=== PATIENT | male | born 1965 | race Caucasian/White ===

== ENCOUNTER 2019-03-16 17:14 | Inpatient (IN) ==
[2019-03-16] MEDS ORDERED: CARDIZEM INJ 50 MG VIAL IVP ONE (17:40)
[2019-03-16] MEDS ORDERED: CARDIZEM INJ 50 MG VIAL ONE (17:42)
[2019-03-16] MEDS ORDERED: CARDIZEM INJ 125 MG VIAL ONE (17:58)
[2019-03-16] MEDS ORDERED: NS 100 ML IV 100 ML IV ONE (17:58)
[2019-03-16] MEDS ORDERED: NS 1000 ML 1,000 ML ONE (18:00)
[2019-03-16 18:01] LABS: BASOPHILS # (AUTO) 0.2 X10^3/uL (0.0-0.1); BASOPHILS % (AUTO) 1.6 % (0.2-1.0); EOSINOPHILS # (AUTO) 0.4 x10^3/uL (0.0-0.2); HEMATOCRIT 41.8 % (42.0-54.0); LYMPHOCYTES % (AUTO) 23.7 % (21.0-51.0); MEAN CORPUSCULAR HEMOGLOBIN 27.5 pg (27.0-34.0); MEAN CORPUSCULAR HGB CONC 33.5 g/dL (33.0-35.0); MEAN CORPUSCULAR VOLUME 81.9 fL (80.0-100.0); MONOCYTES # (AUTO) 0.8 x10^3/uL (0.3-0.8); MONOCYTES % (AUTO) 6.7 % (0.0-13.0); NEUTROPHILS # (AUTO) 8.1 x10^3/uL (2.2-4.8); PLATELET COUNT 321 X10^3/uL (150.0-450.0); WHITE BLOOD COUNT 12.5 X10^3/uL (3.6-10.0)
[2019-03-16 18:10] LABS: BLOOD UREA NITROGEN 19 mg/dL (7-18); CALCIUM 8.4 mg/dL (8.5-10.1); CARBON DIOXIDE 26.7 mmol/L (21-32); CHLORIDE 106 mmol/L (98-107); COR NA(FOR HYPERGLY) 145 mmol/L (136-145); CREATININE 1.29 mg/dL (0.70-1.30); SODIUM 143 mmol/L (136-145); TROPONIN I < 0.02 ng/mL (0-1.5); eGFR NON BLACK RACES > 60 (>60)
[2019-03-16 18:14] LABS: ALANINE AMINOTRANSFERASE 25 Units/L (12-78); ALBUMIN 3.5 g/dL (3.4-5.0); ALKALINE PHOSPHATASE 94 Units/L (46-116); ASPARTATE AMINO TRANSFERASE 14 Units/L (15-37); CKMB % 1.3 % (<4); CREATINE KINASE 90 Units/L (39-308); CREATINE KINASE MB 1.2 ng/mL (0-4.0); MAGNESIUM 2.1 mg/dL (1.7-2.9); TOTAL PROTEIN 7.3 g/dL (6.4-8.2)
[2019-03-16] MEDS: CARDIZEM INJ 125 MG VIAL 125 MG in NS 100 ML IV 100 ML IV PRN (18:17)
[2019-03-16] MEDS: NS 1000 ML 1,000 ML IV SCH (18:18)
--- NOTE | 2019-03-16 18:21 | RAD ---
HISTORYCHEST PAINSTUDYCHEST, 1 VIEWCOMPARISONNoneFINDINGSThe trachea is midline. The cardiac silhouette is unremarkable . The lungs are clear without focal infiltrate or effusion. The bony thorax is unremarkable.IMPRESSIONNo acute cardiopulmonary disease.Electronically signed by: CHRIS BUSTAMANTE (Mar 16, 2019 18:19:31)
--- NOTE | 2019-03-16 19:14 | DR.CP ---
HPI Time Seen Time Seen by Provider: 03/16/19 19:10 PCP Primary Care Physician: NFD Complaint Chief Complaint:: PT C/O CP THAT STARTED ONE HOUR AGO , WHILE HE WAS SITTING HE STATES IT SCARED HIM ( MID STERNAL CP THAT RAN DOWN HIS LEFT ARM) PT STATES HIS PAIN MIRANDA 3 AND IT WAS A 7 ,,BR Self Treatment fo Chief Complaint: PT STATES HE TAKES HIS WIFES B/P MEDS , ( Source History Provided: Patient Mode of Arrival Mode of Arrival: Ambulatory Timing Onset of Chief Complaint: 03/16/19 PMH PMH Past Medical History: No (Pt. has never seen a doct) Past Surgical History: No Family History History of Family Medical Conditions: Yes Family Medical History: ND, Coronary Artery Disease and Hypertension Family Medical History Comment: CVA and DVT, PE Social History Does patient currently use any type of tobacco product: No Have you used tobacco products in the last 12 months: No Type of Tobacco Use: None Does any household member use tobacco: No Alcohol Use: None Do you use any recreational Drugs:: No Lives With: Family Lives Where: Assisted Care infectious screening In the last 2 months have you had wt loss of >10#?: NO Have you had fever, night sweats or hemotysis?: No Have you traveled outside the country in the last 6 months?: No Isolation: Standard ROS Review of Systems Constitutional: No Symptoms Reported Eyes: No Symptoms Reported ENTM: No Symptoms Reported Respiratoy: No Symptoms Reported Cardiovascular: See HPI, Chest Pain and Palpitations Gastrointestinal/Abdominal: No Symptoms Reported Genitourinary: No Symptoms Reported Neurological: No Symptoms Reported Musculoskeletal: No Symptoms Reported Integumentary: No Symptoms Reported Hematologic/Lymphatic: No Symptoms Reported Endocrine: No Symptoms Reported Psychiatric: No Symptoms Reported All Other Systems: Reviewed and Negative PE Vitals Vitals: Temperature 98.0 F Pulse Rate 122 Respiratory Rate 20 Blood Pressure 147/69 O2 Sat by Pulse Oximetry 98 General Limitations: No Limitations General Appearance: Alert, Anxious, In Distress and Obese Head Head Exam: Normal Inspection Eyes Eye exam: Normal Appearance ENT ENT Exam: Normal Exam Chest Chest Inspection: Normal Inspection Respiratory Respiratory Exam: Normal Lung Sounds Bilat Cardiovascular Cardiovascular Exam: Tachycardia and Irregular Rhythm Pulse: Normal Edema: Normal Abdominal Exam Abdominal Exam: Normal Inspection, Normal Bowel Sounds and Soft Extremities Extremities Exam: Normal Inspection Back Back Exam: Normal Inspection Neurologic Neurological Exam: Alert and Oriented X3 Psychiatric Psychiatric Exam: Normal Affect and Normal Mood Skin Skin Exam: Warm, Dry, Intact and Normal Color MDM Differential Diagnosis Differential Diagnosis: Angina, Chest Wall Pain, CHF, Myocardial Infarction, Pneumonia and Pneumothorax COURSE Treatment Treatment: Discussed case with Dr. Kaur who accepted Reevaluation 1st: Improved ROR Labs Reviewed Laboratory Results Reviewed?: Yes Result Diagrams: 03/16/19 17:46 03/16/19 17:46 Laboratory: WBC 12.5 X10^3/uL (3.6-10.0) H 03/16/19 17:46 RBC 5.10 X10^6/uL (4.7-6.0) 03/16/19 17:46 Hgb 14.0 g/dL (13.5-18.0) 03/16/19 17:46 Hct 41.8 % (42.0-54.0) L 03/16/19 17:46 MCV 81.9 fL (80.0-100.0) 03/16/19 17:46 MCH 27.5 pg (27.0-34.0) 03/16/19 17:46 MCHC 33.5 g/dL (33.0-35.0) 03/16/19 17:46 RDW 15.0 % (11.6-16.5) 03/16/19 17:46 Plt Count 321 X10^3/uL (150.0-450.0) 03/16/19 17:46 MPV 8.0 fL (7.4-11.0) 03/16/19 17:46 Neut % (Auto) 65.0 % (42.0-75.0) 03/16/19 17:46 Lymph % (Auto) 23.7 % (21.0-51.0) 03/16/19 17:46 [place] % (Auto) 6.7 % (0.0-13.0) 03/16/19 17:46 Eos % (Auto) 3.0 % (0.9-2.9) H 03/16/19 17:46 Baso % (Auto) 1.6 % (0.2-1.0) H 03/16/19 17:46 Neut # (Auto) 8.1 x10^3/uL (2.2-4.8) H 03/16/19 17:46 Lymph # (Auto) 3.0 X10^3/uL (1.3-2.9) H 03/16/19 17:46 [place] # (Auto) 0.8 x10^3/uL (0.3-0.8) 03/16/19 17:46 Eos # (Auto) 0.4 x10^3/uL (0.0-0.2) H 03/16/19 17:46 Baso # (Auto) 0.2 X10^3/uL (0.0-0.1) H 03/16/19 17:46 Absolute Nucleated RBC 0.0 /100WBC 03/16/19 17:46 PT 12.5 SECONDS (11.8-14.3) 03/16/19 17:46 INR Target Range - 03/16/19 17:46 INR 0.97 (0.8-1.3) 03/16/19 17:46 APTT 31.0 SECONDS (22.9-36.5) 03/16/19 17:46 PTT Comment - 03/16/19 17:46 D-Dimer < 100 ng/mL (0-400) 03/16/19 17:46 Sodium 143 mmol/L (136-145) 03/16/19 17:46 Corrected Sodium 145 mmol/L (136-145) 03/16/19 17:46 Potassium 4.0 mmol/L (3.5-5.1) 03/16/19 17:46 Chloride 106 mmol/L (98-107) 03/16/19 17:46 Carbon Dioxide 26.7 mmol/L (21-32) 03/16/19 17:46 BUN 19 mg/dL (7-18) H 03/16/19 17:46 Creatinine 1.29 mg/dL (0.70-1.30) 03/16/19 17:46 Est GFR (MDRD) Af Amer > 60 (>60) 03/16/19 17:46 Est GFR (MDRD) Non-Af > 60 (>60) 03/16/19 17:46 Glucose 196 mg/dL (65-99) H 03/16/19 17:46 Calcium 8.4 mg/dL (8.5-10.1) L 03/16/19 17:46 Corrected Calcium TNP 03/16/19 17:46 Magnesium 2.1 mg/dL (1.7-2.9) 03/16/19 17:46 Total Bilirubin 0.20 mg/dL (0.2-1.0) 03/16/19 17:46 AST 14 Units/L (15-37) L 03/16/19 17:46 ALT 25 Units/L (12-78) 03/16/19 17:46 Alkaline Phosphatase 94 Units/L (46-116) 03/16/19 17:46 Creatine Kinase 90 Units/L (39-308) 03/16/19 17:46 CK-MB (CK-2) 1.2 ng/mL (0-4.0) 03/16/19 17:46 CK/CKMB % Calc 1.3 % (<4) 03/16/19 17:46 Troponin I < 0.02 ng/mL (0-1.5) 03/16/19 17:46 Total Protein 7.3 g/dL (6.4-8.2) 03/16/19 17:46 Albumin 3.5 g/dL (3.4-5.0) 03/16/19 17:46 Globulin 3.8 g/dL (2.5-4.5) 03/16/19 17:46 Albumin/Globulin Ratio 0.9 Ratio (1.1-2.1) L 03/16/19 17:46 Other Results Comments: HISTORY CHEST PAIN STUDY CHEST, 1 VIEW COMPARISON None FINDINGS The trachea is midline. The cardiac silhouette is unremarkable . The lungs are clear without focal infiltrate or effusion. The bony thorax is unremarkable. IMPRESSION No acute cardiopulmonary disease. Electronically signed by: CHRIS BUSTAMANTE (Mar 16, 2019 18:19:31) EKG Rate: 146 [place]: Normal Rhythm: Afib Block: LBBB (LAHB) Hypertrophy: None ST: Inf (related to rate) Procedures Procedure Comments Procedures: Critical Care time 68 minutes Opioid Opioid Risk Tool Age (Oleg box if 16-45): No History of Preadolescent Sexual Abuse: No Total: 0 Total Score Risk Category: Low Risk Copyright: [facility] predicting aberrant behaviors Diagnosis Discharge Problem: New onset a-fib, Atrial fibrillation with rapid ventricular response, Elevated blood pressure reading without diagnosis of hypertension Instructions Forms: Excuse From Work Patient Portal
[2019-03-16] MEDS ORDERED: LOPRESSOR TAB 50 MG PO ONE (19:18)
[2019-03-16] MEDS ORDERED: LOPRESSOR TAB 50 MG ONE (19:43)
[2019-03-16] MEDS ORDERED: ASPIRIN ONE (20:00)
[2019-03-16] MEDS ORDERED: DIFLUCAN 100 MG IV (MIX by PHARMACY)* 100 MG/50 ML BAG IV SCH (20:00)
[2019-03-16] MEDS ORDERED: ASPIRIN PO SCH (20:00)
[2019-03-16] MEDS ORDERED: ELIQUIS PO SCH (21:00)
[2019-03-16 22:29] VITALS: BMI 45.3
[2019-03-17] MEDS ORDERED: PEPCID TAB 20 MG ONE (00:24)
[2019-03-17] MEDS: NS 1000 ML 1,000 ML IV SCH ×2 (00:30→04:02)
[2019-03-17] MEDS ORDERED: PEPCID TAB 20 MG PO SCH (01:00)
[2019-03-17] MEDS: CARDIZEM INJ 125 MG VIAL 125 MG in NS 100 ML IV 100 ML IV PRN (01:12)
[2019-03-17 01:36] LABS: CKMB % 6.8 % (<4); CREATINE KINASE MB 12.3 ng/mL (0-4.0); TROPONIN I 3.81 ng/mL (0-1.5)
[2019-03-17 02:36] LABS: ABG BASE EXCESS -0.5 mmol/L (-2.0-2.0); ABG HCO3 24.2 mmol/L (22-26)
[2019-03-17 02:37] LABS: ABG ALLEN TEST POS
[2019-03-17] MEDS ORDERED: NITROGLYCERIN IV PREMIX 50 MG 50 MG/250 ML BAG IV ONE (02:46)
[2019-03-17] MEDS: NITROGLYCERIN IV PREMIX 50 MG 50 MG/250 ML BAG IV PRN ×2 (03:00→04:02)
[2019-03-17] MEDS ORDERED: HEPARIN SODIUM IN D5W 25,000 UNITS/500 ML BAG IV PRN (03:32)
[2019-03-17] MEDS ORDERED: HEPARIN SODIUM IN D5W 25,000 UNITS/500 ML BAG IV ONE (03:32)
[2019-03-17] MEDS ORDERED: HEPARIN SODIUM INJ 5000 UNITS IVP ONE (03:52)
[2019-03-17] MEDS ORDERED: HEPARIN SODIUM INJ 5000 UNITS ONE (03:53)
--- NOTE | 2019-03-17 03:58 | RAD ---
Chest AP portableIndication: Hypertension.COMPARISONJan2019FINDINGSThere is no pneumothorax. There is cardiomegaly with monitoring leads obscure detail. Mild increased interstitial markings noted.IMPRESSIONCardiomegaly and borderline edema suggesting CHF. Follow-up to resolution.Electronically signed by: STEVEN AKHTAR (Mar 17, 2019 03:56:40)
[2019-03-17] MEDS ORDERED: LASIX IVP ONE ×2 (04:13→04:21)
[2019-03-17] MEDS ORDERED: NS 1000 ML 1,000 ML IV SCH (05:00)
[2019-03-17 05:27] LABS: BASOPHILS # (AUTO) 0.1 X10^3/uL (0.0-0.1); BASOPHILS % (AUTO) 0.6 % (0.2-1.0); EOSINOPHILS # (AUTO) 0.4 x10^3/uL (0.0-0.2); EOSINOPHILS % (AUTO) 2.4 % (0.9-2.9); HEMATOCRIT 40.9 % (42.0-54.0); HEMOGLOBIN 13.5 g/dL (13.5-18.0); LYMPHOCYTES # (AUTO) 2.4 X10^3/uL (1.3-2.9); LYMPHOCYTES % (AUTO) 15.8 % (21.0-51.0); MEAN CORPUSCULAR HEMOGLOBIN 27.3 pg (27.0-34.0); MEAN CORPUSCULAR VOLUME 82.7 fL (80.0-100.0); MEAN PLATELET VOLUME 8.6 fL (7.4-11.0); MONOCYTES % (AUTO) 6.6 % (0.0-13.0); NEUTROPHILS # (AUTO) 11.1 x10^3/uL (2.2-4.8); NEUTROPHILS % (AUTO) 74.6 % (42.0-75.0); PLATELET COUNT 319 X10^3/uL (150.0-450.0); RED BLOOD COUNT 4.94 X10^6/uL (4.7-6.0); RED CELL DISTRIBUTION WIDTH 15.1 % (11.6-16.5); WHITE BLOOD COUNT 14.9 X10^3/uL (3.6-10.0)
[2019-03-17 05:30] VITALS: BP 161/97
[2019-03-17 05:53] LABS: CHOL/HDL RATIO 6.3 (0.0-5.0)
[2019-03-17 06:07] LABS: ALANINE AMINOTRANSFERASE 27 Units/L (12-78); ALBUMIN 3.4 g/dL (3.4-5.0); ALKALINE PHOSPHATASE 84 Units/L (46-116); ASPARTATE AMINO TRANSFERASE 46 Units/L (15-37); BLOOD UREA NITROGEN 19 mg/dL (7-18); CALCIUM 8.2 mg/dL (8.5-10.1); CARBON DIOXIDE 26.4 mmol/L (21-32); CHLORIDE 107 mmol/L (98-107); COR NA(FOR HYPERGLY) 143 mmol/L (136-145); CREATINE KINASE 229 Units/L (39-308); CREATININE 1.19 mg/dL (0.70-1.30); SODIUM 142 mmol/L (136-145); TOTAL PROTEIN 7.1 g/dL (6.4-8.2); eGFR NON BLACK RACES > 60 (>60)
[2019-03-17 06:10] LABS: TROPONIN I 5.59 ng/mL (0-1.5)
[2019-03-17 06:11] LABS: CKMB % 9.5 % (<4); CREATINE KINASE MB 21.7 ng/mL (0-4.0)
[2019-03-17] MEDS ORDERED: PREVNAR 13 IM ONE (10:00)
[2019-03-17] MEDS ORDERED: AFLURIA II4 or FLUARIX II4 IM ONE (10:00)
== END 2019-03-17 05:30 | disposition short-term general hospital (02) | DRG 280 ==
LOC: ER 17:19 → ICU 19:33
PROVIDERS: ADMIT Obstetrics & Gynecology Obstetrics; ATTEND Obstetrics & Gynecology Obstetrics
DX: D72.828 Other elevated white blood cell count; R73.09 Other abnormal glucose; R94.31 Abnormal electrocardiogram [ECG] [EKG]; I21.9 Acute myocardial infarction, unspecified; Z72.0 Tobacco use; I48.91 Unspecified atrial fibrillation; J81.0 Acute pulmonary edema; R03.0 Elevated blood-pressure reading, without diagnosis of hypertension
CPT/HCPCS: 36415; 36600; 71010; 71045; 80053; 80061; 82550; 82553; 82803; 83735; 84484; 85025; 85378; 85610; 85730; 93005; 96365; 96367; 96374; 96375; 99285; A4222; J1644; J1940; J3490; J7030; J7050